=== PATIENT | female | born 2000 | race Caucasian/White ===

== ENCOUNTER 2022-08-17 18:59 | Emergency (ER) | payer BC ==
[~2022-08-17] VITALS: Ht 157.5 cm; Wt 48.5 kg
[2022-08-17 19:03] VITALS: BP_SYST 117
--- NOTE | 2022-08-17 19:11 | NUR ---
Patient triaged and placed in waiting room. VSS and patient appears in no acute distress at this time. Accompanied by SELF, awaiting available bed, and MD notified of need for MSE.
--- NOTE | 2022-08-17 19:21 | NUR ---
ER Dr. GARRETT at bedside examining patient.
[2022-08-17 19:51] LABS: BILIRUBIN,URINE NEGATIVE (NEGATIVE); BLOOD, URINE NEGATIVE (NEGATIVE); CLARITY/URINE CLEAR (CLEAR); COLOR,URINE YELLOW (YELLOW); GLUCOSE,URINE NEGATIVE (NEGATIVE); KETONES,URINE NEGATIVE (NEGATIVE); LEUKOCYTE ESTERASE ,URINE TRACE (NEGATIVE); NITRITE, URINE NEGATIVE (NEGATIVE); PROTEIN URINE NEGATIVE (NEGATIVE); UROBILINOGEN,URINE 0.2 (0.2-1.0)
[2022-08-17 20:04] LABS: RBC,URINE NONE SEEN /HPF (0-3)
[2022-08-17 20:05] LABS: BACTERIA,URINE FEW /HPF (None Seen); MUCUS,URINE None Seen /LPF (None Seen)
--- NOTE | 2022-08-17 20:37 | NUR ---
Pt ambulated to ultrasound.
[2022-08-17 20:44] LABS: BASOPHILS % (AUTO) 0.2 % (0.0-2.0); EOSINOPHILS # (AUTO) 0.1 K/uL (0.0-0.4); EOSINOPHILS % (AUTO) 1.9 % (0.0-4.0); HEMATOCRIT 39.3 % (36-48); HEMOGLOBIN 13.3 g/dL (12.0-16.0); LYMPHOCYTES # (AUTO) 1.9 K/uL (1.0-5.5); LYMPHOCYTES % (AUTO) 31.1 % (20.5-51.5); MEAN CORPUSCULAR HEMOGLOBIN 30 pg (27-31); MEAN CORPUSCULAR HGB CONC 34 % (32-36); MEAN CORPUSCULAR VOLUME 88 fL (79.0-98.0); MONOCYTES # (AUTO) 0.5 K/uL (0.0-1.0); MONOCYTES % (AUTO) 8.3 % (1.7-9.3); NEUTROPHILS # (AUTO) 3.6 K/uL (1.8-7.7); NEUTROPHILS % (AUTO) 58.5 % (40.0-70.0); PLATELET COUNT (AUTO) 248 K/uL (130-430); RED BLOOD CELL COUNT(AUTO) 4.48 MIL/uL (4.2-6.2); RED CELL DISTRIBUTION WIDTH 12.8 % (9.0-15.0); WHITE BLOOD COUNT (AUTO) 6.1 K/uL (4.8-10.8)
[2022-08-17 21:00] LABS: ALBUMIN 3.7 g/dL (3.4-4.8); CALCIUM 8.5 mg/dL (8.4-11.0); CREATININE 0.57 mg/dL (0.55-1.30); TOTAL BILIRUBIN 0.3 mg/dL (0.0-1.0)
--- NOTE | 2022-08-17 21:12 | NUR ---
accompanied patient to ultrasound to diversional therapist for transvaginal ultrasound with Ethan fire control technician b. Patient tolerated well.
--- NOTE | 2022-08-17 22:07 | NUR ---
PT BIB SELF FROM HOME, AMBULATED TO [facility] 1. PT A&Ox4, ABLE TO MAKE NEEDS KNOWN. PT C/O PELVIC PAIN BEGINNING ON 08/06/22. PT RATES PAIN 9/10. PT DESCRIBES PRESSURE IN PELVIC AREA AND BURNING SENSATION TOWARD HER BOTTOM. PT STATES SHE FELL, BUT LANDED ON HER KN EES. PT STATES SHE WENT TO URGENT CARE ON 08/09 AND EVERYTHING CAME BACK NORMAL. PT STATES SHE HAD AN ULTRASOUND DONW ON 08/14 AND WAS ADVISED SHE HAD A SMALL CYST BUT THAT IT COULD BE FROM HER PERIOD. PT DENIES TAKING PAIN MEDICATION TODAY. SHE STATES SHE HAS TAKEN PAIN MEDICATION IN THE PAST BUT HAS BEEN INEFFECTIVE. PT DENIES N/V/D, FEVER, CHILLS, SOB AND CHEST PAIN. SAFETY MEAURES IN PLACE.
[2022-08-17] MEDS ORDERED: KETOROLAC TROMETHAMINE 15 MG VIAL IM ONE (22:15)
[2022-08-17] MEDS ORDERED: METH-634 PO (22:28)
[2022-08-17] MEDS ORDERED: IBUP-1969 PO (22:28)
[2022-08-17 22:40] VITALS: BP_SYST 108
--- NOTE | 2022-08-17 22:41 | NUR ---
Patient given written and verbal discharge instructions and verbalizes understanding. ER DR GARRETT discussed with patient the results and treatment provided. Patient in stable condition. ID arm band removed. Rx of MOTRIN AND ROBAXIN given. Patient educated on pain management and to follow up with PMD. Pain Scale 2/10. Opportunity for questions provided and answered. Medication side effect fact sheet provided.
== END 2022-08-17 22:40 | disposition home or self-care (01) ==
LOC: SED 18:59
DX: R10.2 Pelvic and perineal pain (principal); K59.00 Constipation, unspecified; Z79.899 Other long term (current) drug therapy
CPT/HCPCS: 99285; 76856; 80053; 81000; 85025; 36415; 81025; 96372; J1885